=== PATIENT | male | born 1940 | race Caucasian/White ===

== ENCOUNTER 2016-09-07 07:17 | Day surgery (SDC) | payer MEDICARE, OTHER ==
[~2016-09-07 07:17] MED LIST: KETOROLAC TROMETHAMINE 0.45% 4 DROP/0.4 ML DROPERETTE OD PRN; MIDAZOLAM 2 MG/2 ML INJ ONE
[2016-09-07] MEDS ORDERED: EPINEPHRINE INJ/PF 1 MG/1 ML AMPULE ONE (07:43)
[2016-09-07] MEDS ORDERED: LIDOCAINE 1% INJ-PF (10 MG/ML) 30 ML SDV ONE (07:43)
[2016-09-07] MEDS: BESIFLOXACIN HCL 0.6% OPH SUSP 5 ML BOTTLE OD PRN ×4 (07:56→09:03)
[2016-09-07] MEDS: TROPICAMIDE 1% OPH SOLN 3 ML OD PRN ×3 (07:56→08:16)
[2016-09-07] MEDS: CYCLOPENTOLATE 0.2%/PHENYLEPHRINE 1% OPH SOLN 2 ML OD PRN ×3 (07:56→08:16)
[2016-09-07] MEDS: TETRACAINE HCL 0.5% OPH SOLN 2 ML OD PRN ×3 (07:57→08:36)
[2016-09-07] MEDS ORDERED: ONDANSETRON HCL INJ/PF 4 MG/2 ML SDV ONE (08:30)
[2016-09-07] MEDS: CHONDR SU A NA/HYALUR INTRAOC KIT (SURGICARE) ONE ×2 (08:55)
--- NOTE | 2016-09-07 16:39 | [facility] OPERATIVE REPORT E ---
[facility] Operative Report NAME: ANUSHA GUTIERREZ AGE: 75Y DATE OF SURGERY: 09/07/2016 ROOM: PREOPERATIVE DIAGNOSIS: CATARACT, RIGHT EYE. POSTOPERATIVE DIAGNOSIS: CATARACT, RIGHT EYE. OPERATION: Cataract extraction with intraocular lens implant of the right eye. SURGEON: SHEYLA LIM M.D. ANESTHESIA: Topical. PROCEDURE: After obtaining appropriate consent, the patient's right eye was prepped and draped in sterile fashion as well as the surgeon in a sterile manner and cataract surgery was started. First a paracentesis blade was used to make a small side-port incision. Viscoelastic was used to inflate the anterior chamber. Next a 2.4 mm incision was made with the paracentesis blade. A continuous capsulorrhexis incision was made using a cystotome and Utrata forceps. Following this hydrodissection was carried out to make the lens fully loose and mobile and it was rotated 90 degrees. Following this, a koafzi-tyy-tosacds technique was used to phacoemulsify the lens with a CDE of 7.68. The remaining cortex was removed with irrigation/aspiration. Provisc was instilled into the capsular bag to inflate the bag. A SN60WF, 13.5 diopter lens was placed. The remaining viscoelastic material was removed with irrigation/aspiration. Following this, a 10-0 nylon suture was used to close the incision and it was found to be watertight. Vigamox was instilled in the eye and a protective shield was placed over the eye. The patient returned to the postoperative recovery in stable condition. DICTATING PHYSICIAN: SHEYLA LIM M.D. [id number] Y#: [id number] ID: [id number] JOB#: [id number] ACCT: [id number] cc:SHEYLA LIM M.D. >
--- NOTE | 2016-09-07 16:43 | DISCHARGE SUMMARY E ---
Discharge Summary NAME: ANUSHA GUTIERREZ : 1940 AGE: 75Y ADMITTED: 09/07/2016 DISCHARGED: 09/07/2016 This is a 75-year-old male who underwent cataract extraction of the right eye. DIAGNOSIS: Cataract, right eye. He underwent surgery because he was having trouble reading road signs at driving due to glare. DISCHARGE INSTRUCTIONS: He is to be on a regular diet. No bending at his waist, no heavy lifting. He is to use Besivance, Ilevro, and Durezol at 3:00 p.m. and 8:00 p.m., and sleep with a rigid shield. I will see him for his one day postoperative tomorrow. DICTATING PHYSICIAN: SHEYLA LIM M.D. [id number] JAIR#: [id number] ID: [id number] JOB#: [id number] ACCT: [id number] cc:SHEYLA LIM M.D. >
== END 2016-09-07 09:47 | disposition home or self-care (01) ==
LOC: SC 07:17
PROVIDERS: ATTEND Internal Medicine
PROC: 08RJ3JZ Replacement of Right Lens with Synthetic Substitute, Percutaneous Approach (ICD-10-PCS; principal; 2016-09-07 08:30)
DX: H25.11 Age-related nuclear cataract, right eye (principal); I10 Essential (primary) hypertension; E11.9 Type 2 diabetes mellitus without complications; Z79.02 Long term (current) use of antithrombotics/antiplatelets; Z79.84 Long term (current) use of oral hypoglycemic drugs; Z79.82 Long term (current) use of aspirin; Z79.899 Other long term (current) drug therapy
CPT/HCPCS: 66984; 82962; V2632; J2250; J3490 ×2; A9270; J0171; J2405; 142

== ENCOUNTER → 2016-11-15 | Outpatient (CLI) | payer MEDICARE, OTHER | LOC: RAD 15:42 | PROVIDERS: ATTEND Internal Medicine | DX: M54.5 Low back pain (principal); M47.896 Other spondylosis, lumbar region | CPT/HCPCS: 72110 ==

== ENCOUNTER → 2018-02-12 | Outpatient (CLI) | payer MEDICARE, OTHER ==
--- NOTE | 2018-02-12 08:58 | RADIOLOGY REPORT (SQ) ---
EXAM DESCRIPTION: COOKIE SWALLOW COMPLETED DATE/TIME: 02/12/2018 8:50 am REASON FOR STUDY: DYSPHONIA, SLURRED SPEECH, OTHER ABN OF GAIT AND MOBILITY R49.0 DYSPHONIA R47.81 SLURRED SPEECH R26.89 OTHER ABNORMALITIES OF GAIT AND MOBILITY COMPARISON: None. TECHNIQUE: Videofluoroscopic swallowing examination was performed in conjunction with speech patholo gy. Videofluoroscopic imaging was obtained and reviewed and these are the findings: RADIATION DOSE: Fluoro time 2.53 minutes 1 images saved to PACS. LIMITATIONS: None FINDINGS: The patient was brought into the fluoro room and placed upright on a modified barium swall ow chair. The patient was then given multiple consistencies mixed with barium to swallow under live fluoroscopic video guidance. According to the Speech Pathologist there was laryngeal penetration see n with thin barium. No aspiration identified. Significant residuals were seen in the vallecula with the cookie consistency with diminished epiglottic inversion noted. Multiple subsequent swallows wer e required to clear the vallecula. Please refer to the speech pathology report for further details. IMPRESSION: LARYNGEAL PENETRATION WITHOUT ASPIRATION SEEN WITH THIN BARIUM. DIMINISHED EPIGLOTTIC I NVERSION NOTED.PLEASE SEE SPEECH PATHOLOGIST REPORT FOR OTHER FINDINGS AND RECOMMENDATIONS. COMMENT: CHOOSE 1 Quality ID [id number]: Final reports for procedures using fluoroscopy that document radiation exposure anthony delia, or exposure time and number of fluorographic images (if radiation exposure indices are not avail able) TECHNICAL DOCUMENTATION: JOB ID: [id number] [employer]- All Rights Reserved Reading location - IP/workstation name: [email or web address] [id number]
--- NOTE | 2018-02-12 10:51 | ST Modified Barium Swallow ---
Recommendation - Recommendations Recommendations: Recommend continuing to follow with outpatient speech therapy. Advised patient to avoid specific foods which may be more difficulty (very hard foods, items with skins or husks, etc.). Also recommend alternating bites and sips to help clear pharyngeal residue. Medical Diagnoses - Medical Diagnoses Medical Diagnosis Description & ICD-10 Code(s): dysphagia R13.10, slurred speech R47.81 Other Medical Diagnoses/Co-Morbidities: per patient report: DM, Seizures HTN, TIA, Appendectomy, Gall bladder removed, Parkinson's disease ST Modified Barium Swallow - General Date: 02/12/18 Referring Physician: Kassie Vincent NP Risks/Precautions: Aspiration Date of Onset: 12/28/16 - approximate onset date Reason for Referral: difficulty swallowing - History History obtained from: Patient, Spouse -: Medical - History taken at initial outpatient evaluation for speech therapy on 01/10/18. At that session, reports patient having difficulty "getting words out" x1 year. Patient states that these instances happen rarely, and when they happen it feel similar to word finding deficits he had immediately following TIA in 2007. No residual deficits from his TIA reported. Patient was diagnosed with Parkinson's disease in 2014. At times voice "gets low", but the patient and his generally feel that voice isn't changed. No prior speech therapy. Swallowing difficulties also x1 year. No foods being avoided. Globus sensation, no coughing reported. Medications: per patient provided list: Levemir FLextouch, Clopidogrel, Glimepiride, Tribenzor, Metformin, Novotwist, Carbidopa levodpa, Zetia Allergies: none reported - Functional Status Prior Functional Status: INDEPENDENT: feeding - independent Current Functional Limitations: feeding - using liquid wash - Subjective Patient/caregiver goal(s): better swallow Cognitive-Linguistic Function: WNL Speech Intelligibility: Mildly dysarthric Current Nutritional Means: PO Current PO diet: Regular Current symptoms: c/o Globus sensation Pain: Patient reports, 0/5 - Objective Assessment: Upright, Left Lateral - Food Trials Used Food trials used: Thin liquids, Pureed, Regular The patient: Was Able to Self Feed, via cup, via spoon - Assessment Oral prep: Normal Labial closure: Adequate Leakage: None Mastication: Adequate Oral stage: Normal for this Procedure - Pharyngeal Stage Initiation of Pharyngeal Stage Reflex: Normal Decreased laryngeal elevation: No Reduced Velopharyngeal Closure: no Reduced pressure generation: Yes reduced tongue-based retraction: No Pre-swallow pooling in valleculae: Significant Pre-Swallow pooling in pyriforms: None Reduced Thyro-Hyoid approximation: Yes - mild Reduced epiglottic excursion: Yes - epiglottis moves horizontally across pharynx but does not invert Reduced pharyngeal peristalsis/contraction: Yes - mild Multiple Swallows with: Ineffective Clearance Post-swallow residulas vallecular: Significant Post-Swallow residuals in pyriforms: Mild Reduced Cricopharyngeal opening: No - Fall Risk Assessment Medications/Conditions that increase fall risks include: Antidepressants, sedatives, anti-arrhythmic, diuretic, benzodiazipenes, neuroleptics. BP regulation problems, cardiac problems, balance or gait deficits, neurological problems. Fall Risk Actions Taken: No action needed - Behavioral Observations During evaluation process patient: was pleasant, was cooperative, able to answer questions - Treatment / Educational Needs: Treatment/Education Needs: Treatment consisted of patient education on the role of the Speech Pathologist. Patient's plan of care and golas were communicated as well as scheduling and attendance policies. Recommendations for initial home program were shared. Patient demonstrated understanding and verbalized agreement. - Impression/Summary Laryngeal Penetration: Yes, Flash, Cleared, during swallow Consistency: Thin Tracheal Aspiration: no Ineffective compensatory strategies: chin tuck, chin down Compesatory strategies: Recommend alternating bites and sips, every 1-2 bites of food. Hard swallow. Throat clear and re-swallow. Patient presents with: Pharyngeal stage dysph., Mild-Moderate Risk of Aspiration: Mild Risk of nutritional compromise: WNL Evaluation and Findings: Patient presents with moderate pharyngeal phase dysphagia. The patient has reduced epiglottic inversion, which reduces airway protection. Penetration of thin liquids seen, not reaching level of vocal folds. Reduced epiglottic inversion also caused increased residue in valleculae. Moderate seen with pudding trial, significant seen with elly cracker trial. Patient demonstrates adequate sensation of residue, and knows to drink liquid until he feels this clear. 4-5 sips of liquid and hard swallows required to clear elly cracker trial. - Recommendations Solid diet recommendations: Regular - avoiding specific problematic foods Liquid Diet Modification: Thin Strict aspiration precautions: Yes Pt/Family education and followup with MD: Yes Dysphagia therapy with LONG LINE TEAMSTER: yes, dysphagia therapy, f/u with current thera. Recommended techniques: Fully Upright During Meal, Small Bites and Sips, Alternate Bites/Sips Information, Precautions and Recommendations: Patient (Written), Patient (Verbal ) - Time Total Time: 20 - Plan of Care Summary: Goals to be set for outpatient speech and dysphagia treatment. Patient to follow-up with referring physician: Yes POC Procedures/Codes: therapeutic trials, pharyngeal exercises, MBSS (60611) Strategies to optimize patient understanding include:: ongoing assessment of educational needs, implementation of educational strategies, and re-education. - - -: Thank you for the opportunity to work with this patient and his/her family. Should you have any questions about this patient's plan or progress, I can be reached at [phone]. Charge G Code? - - -: Yes ST F.L. Impairment Category - Rationale Based On Rationale Based On: Func. Asses. Tool Results - Swallowing Current G8996: CK 40-59% Impaired Goal G8997: CK 40-59% Impaired Discharge G8998: CK 40-59% Impaired
== END ==
LOC: RAD 08:05
PROVIDERS: ATTEND Nurse Practitioner Family
DX: R49.0 Dysphonia (principal); R47.81 Slurred speech; R26.89 Other abnormalities of gait and mobility
CPT/HCPCS: 74230; 92611; G8996; G8997; G8998

== ENCOUNTER 2018-12-04 06:53 | Day surgery (SDC) | payer MEDICARE, OTHER ==
[2018-11-27 11:31] LABS: HEMOGLOBIN 11.3 g/dL (13.5-17.0); MEAN CORPUSCULAR HEMOGLOBIN 30.8 pg (27.0-33.4); MEAN CORPUSCULAR HGB CONC 33.3 g/dL (32.0-36.0); MEAN CORPUSCULAR VOLUME 92 fl (80-97); PLATELET COUNT 236 10^3/uL (150-450); RED BLOOD COUNT 3.69 10^6/uL (4.35-5.55); RED CELL DISTRIBUTION WIDTH 12.7 % (11.5-14.0); WHITE BLOOD COUNT 9.8 10^3/uL (4.0-10.5)
[2018-11-27 11:50] LABS: ANION GAP 15 (5-19); BLOOD UREA NITROGEN 43 mg/dL (7-20); CALCIUM 10.5 mg/dL (8.4-10.2); CARBON DIOXIDE 28 mmol/L (22-30); CHLORIDE 99 mmol/L (98-107); GLUCOSE 133 mg/dL (75-110); POTASSIUM 5.1 mmol/L (3.6-5.0); SODIUM 141.7 mmol/L (137-145)
--- NOTE | 2018-11-27 23:13 | EKG REPORT ---
SEVERITY:- NORMAL ECG - SINUS RHYTHM : Confirmed by: Missy Bhardwaj 27-Nov-2018 23:12:25
[~2018-12-04 06:53] MED LIST changes: +ACETAMINOPHEN 325 MG TABLET PO PRN; +CEFAZOLIN 1 GM/D5W RTU 1 GM/50 ML RTUPB IV PRN; -KETOROLAC TROMETHAMINE 0.45% 4 DROP/0.4 ML DROPERETTE OD PRN; +LACTATED RINGERS 1000 ML IV PRN; +LIDOCAINE 0.5% INJ-PF (5 MG/ML) 50 ML SDV SUBCUT PRN; -MIDAZOLAM 2 MG/2 ML INJ ONE
[2018-12-04] MEDS ORDERED: CEFAZOLIN 1 GM/D5W RTU 1 GM/50 ML RTUPB IV ONE (07:01)
[2018-12-04 07:27] LABS: INTERNATIONAL RATION (INR) 0.94; PROTHROMBIN TIME 13.1 SEC (11.4-15.4)
[2018-12-04 07:28] LABS: PARTIAL THROMBOPLASTIN TIME 25.8 SEC (23.5-35.8)
[2018-12-04] MEDS ORDERED: FENTANYL CITRATE INJ/PF 100 MCG/2 ML AMPUL ONE (09:19)
[2018-12-04] MEDS ORDERED: MIDAZOLAM 2 MG/2 ML INJ ONE (09:19)
[2018-12-04] MEDS ORDERED: HYDROMORPHONE HCL INJ/PF 2 MG/ML AMPULE ONE (09:19)
[2018-12-04] MEDS ORDERED: PROPOFOL INJ 200 MG/20 ML VIAL IV ONE (09:20)
[2018-12-04] MEDS ORDERED: ACETAMINOPHEN 1,000 MG/100 ML RTUPB IV ONE (09:20)
[2018-12-04] MEDS ORDERED: BUPIVACAINE HCL 0.25 % INJ/PF (2.5 MG/1 ML) 30 ML VIAL ONE (09:24)
[2018-12-04] MEDS ORDERED: BUPIVACAINE INJ/PF LIPOSOME/PF 266 MG/20 ML SDV ONE (09:24)
[2018-12-04] MEDS ORDERED: PROMETHAZINE HCL INJ 25 MG/1 ML VIAL ONE (09:34)
[2018-12-04] MEDS ORDERED: SCOPOLAMINE HYDROBROMIDE 1.5 MG PATCH.TD72 ONE (09:35)
[2018-12-04] MEDS ORDERED: FENTANYL CITRATE INJ/PF 100 MCG/2 ML AMPUL IV PRN ×3 (10:20)
[2018-12-04] MEDS ORDERED: MORPHINE SULFATE 10 MG/ML INJ IV PRN (10:20)
[2018-12-04] MEDS ORDERED: MEPERIDINE HCL/PF INJ 25 MG/1 ML DISP.SYRIN IV PRN (10:20)
[2018-12-04] MEDS ORDERED: DIPHENHYDRAMINE HCL 50 MG/ML VIAL IV PRN (10:20)
[2018-12-04] MEDS ORDERED: OXYCODONE-ACETAMINOPHEN 5-325 MG TABLET PO PRN (10:54)
--- NOTE | 2018-12-04 10:54 | Discharge Summary ---
Discharge Summary (SDC) - Discharge Final Diagnosis: Left inguinal hernia Date of Surgery: 12/04/18 Discharge Date: 12/04/18 Condition: Good Treatment or Instructions: [facility] [address], [place] [address] Discharge Instructions: Open Abdominal Procedures (Hernia, Bowel Surgery) 1.General Information: a. DO NOT DRIVE a car or operative machinery for 1-2 weeks or as long as taking Narcotic pain medication. b. DO NOT consume alcohol, tranquilizers, sleeping medication, or any non- prescribed medication for 24 hours unless approved by your doctor or as long as taking pain medication. c. DO NOT make important decisions or sign any important papers for the first 24 hours after surgery. d. When discharged home the same day as surgery have a responsible person with you the first night. 2.Activity Restriction: 8 weeks a. Avoid heavy lifting (> 10-15 lbs), straining abdominal muscles and sports, mowing lawn, vacuum shafting cleaner and bending over a lot. b. Walking is important to avoid blood clots in the legs and deep breathing can prevent pneumonia. c. If it fine to go for walks, up and down steps, and ride in a car. 3.Treatment: a. You may shower in 24 hours after surgery and shower then daily is fine, but you should not bathe in a tub or go swimming for 2 weeks. Leave skin glue intact. c. Do not use oils, powders, or lotion on your incision. 4.Medications: a. You may take prescription tablets for pain if needed, one every 6 hours (_Toradol_). c. You may resume all normal medications unless a change is specified by your doctors. 5.Diet: b. When discharged after hospital stay you may resume a normal diet. 6.Notify Physician If: a. Pain is not relieved by pain medication b. Persistent nausea and vomiting c. Chills, fever (above 101) d. Persistent bleeding or swelling at the operative site e. Unable to urinate for 6-8 hours f. Increased redness, drainage, or foul smelling discharge from incision 7. Follow Up Care: a. Please call our office to schedule an appointment with your doctor for 2 weeks. In the event of any postoperative problems or questions you may call our office during business hours or the On-Call surgeon through the tufting machine operator at [facility]. [facility] [phone] [facility] [phone] (Ask for the surgeon subcontract manager) b. I understand the instructions for my postoperative care as described above and a copy has been given to me. Witness Patient/Significant Other Date Prescriptions: Ketorolac Tromethamine [Toradol 10 mg Tablet] 10 mg PO Q6HP PRN #20 tablet PRN Reason: Referrals: DESTINEY HAMMONDS MD [Primary Care Provider] - Discharge Diet: As Tolerated Discharge Activity: Balance Activity w/Rest, No Lifting Over 10 Pounds, No Lifting/Push/Pulling, Walk Frequently Report the Following to Your Physician Immediately: Nausea, Vomiting, Increase in Pain, Fever over 101 Degrees, Unusual Bleeding, Redness, Warmth
--- NOTE | 2018-12-04 11:01 | Operative Report ---
Operative Report DATE OF SURGERY: 12/04/18 PREOPERATIVE DIAGNOSIS: Left inguinal hernia, incarcerated POSTOPERATIVE DIAGNOSIS: Same, indirect OPERATION: Left inguinal expiration, with left inguinal herniorrhaphy with large Bard polypropylene mesh prosthesis SURGEON: GABRIELA LAU ANESTHESIA: GA TISSUE REMOVED OR ALTERED: Hernia sac; cord lipoma COMPLICATIONS: None ESTIMATED BLOOD LOSS: Scant INTRAOPERATIVE FINDINGS: See below PROCEDURE: The patient was seen in the preop holding area where the left inguinal area was marked by Dr. Lau. He was then taken to the main operating room where general anesthesia was induced. The scrotum, inguinal areas were scrubbed vigorously with chlorhexidine wipes. Additional hair clipping was performed The left inguinal area was then prepped draped sterile fashion. Surgical plan and surgical timeout were conducted. The skin was anesthetized with quarter percent Marcaine. Left inguinal herniorrhaphy incision was made knife, subcutaneous tissue divided, and Radha's fascia divided Additional lidocaine was injected into the deep tissue. The external oblique aponeurosis was opened along the direction of its fibers, and both the. Superior and inferior fascial flaps were and the contents of the entire inguinal canal mobilized around a [place] drain. Cremasteric fibers were swept away, and the floor the inguinal canal analyzed. The floor medially was intact but weak. Cord contents analyzed, and we identified a moderate sized cord lipoma, and a large inguinal hernia sac. Both structures were isolated from the other cord structures uneventfully with gentle tension. The lipoma was mobilized to its point of origination close to the internal inguinal ring, ligated at its base, amputated and the pedicle oversewn with a 2-0 Vicryl suture. The hernia sac was opened and found to contain a portion of the posterior inferior wall of the sigmoid colon and this was from the carefully. That portion of the colon was allowed to retract into the peritoneal cavity, and the sac oversewn at the level of the anterior abdominal wall with a 2-0 Vicryl suture in a pursestring fashion. The distal portion of the sac was amputated and sent to pathology. We now check to the floor the inguinal canal carefully and identified no other pathology. Spermatic cord was preserved throughout the dissection. We elected to reconstruct the floor of the canal with a large probe going Bard plug and mesh prosthesis. The plug was brought onto the field, inserted into the floor the canal just medial to the cord structures, and lateral to the inferior epigastric vessels. It was sewed to the floor the inguinal canal with 3 interrupted 0 PDS sutures. The over lying flat mesh was then turned to the appropriate configuration, so to joint tendon and Poupart's ligament, with the 2 tails re-creating the internal inguinal ring laterally. Approximately 8 sutures were used to fix the mesh to the fascia. The respective sensory nerves were avoided during fixation. The external oblique aponeurosis was closed with 2-0 Vicryl, Radha's fascia with 2-0 Vicryl skin with 3-0 Vicryl Dermabond glue. 20 cc of slightly dilute Exparel was injected in subcutaneous tissues. Patient tolerated the procedure well, extubated, and taken recovery in stable condition.
[2018-12-04] MEDS ORDERED: ONDANSETRON HCL INJ/PF 4 MG/2 ML SDV ONE (13:45)
[2018-12-04] MEDS ORDERED: DEXAMETHASONE SOD PHOSPHATE INJ 4 MG/1 ML VIAL ONE (13:45)
[2018-12-04] MEDS ORDERED: PHENYLEPHRINE HCL INJ/PF 10 MG/1 ML SDV ONE (13:45)
[2018-12-04] MEDS ORDERED: SUCCINYLCHOLINE CHLORIDE INJ 200 MG/10 ML VIAL ONE (13:45)
[2018-12-04 14:00] VITALS: BP 139/67
== END 2018-12-04 13:15 | disposition home or self-care (01) ==
LOC: OROUT 06:53
PROVIDERS: ATTEND Surgery
DX: K40.30 Unilateral inguinal hernia, with obstruction, without gangrene, not specified as recurrent (principal); D17.6 Benign lipomatous neoplasm of spermatic cord; E11.9 Type 2 diabetes mellitus without complications; G20 Parkinson's disease; I10 Essential (primary) hypertension; D64.9 Anemia, unspecified; Z79.899 Other long term (current) drug therapy; Z79.84 Long term (current) use of oral hypoglycemic drugs; Z86.73 Personal history of transient ischemic attack (TIA), and cerebral infarction without residual deficits; Z79.82 Long term (current) use of aspirin; Z01.818 Encounter for other preprocedural examination
CPT/HCPCS: 93005; 36415 ×2; 82962; 84132; 85027; 85610; 85730; 80048; 88304 ×2; 93010; 49507; C1781; J2250; J0690; J1100; J1170; J2370; J0330; J2405; J2704; J0131; C9290; 830; J2550; J3010

== ENCOUNTER 2019-12-26 00:35 | Emergency (ER) | payer MEDICARE, OTHER ==
--- NOTE | 2019-12-26 02:47 | RADIOLOGY REPORT (SQ) ---
EXAM DESCRIPTION: X-ray abdomen 1 view CLINICAL DATA: 79-year-old male with abdominal pain and constipation. TECHNICAL DATA: A single AP supine x-ray of the abdomen was performed on 12/26/2019 at 2:24 AM. Comparison: 04/23/2013. FINDINGS: The bowel gas pattern is nonspecific and nonobstructive. There is moderate fecal residue scattered throughout the colon and rectum. There are multiple surgical clips present in the right upper quadrant. No pathologic abdominal or pelvic calcifications are identified. No abnormal air collections are identified. No focal soft tissue abnormalities are seen. No acute osseous abnormalities are identified. IMPRESSION: 1. Nonspecific nonobstructive bowel gas pattern. There is moderate fecal residue scattered throughout the colon and rectum. 2. Postsurgical changes in the right upper quadrant.
[2019-12-26 08:41] LABS: APPEARANCE,URINE CLEAR; BILIRUBIN,URINE NEGATIVE (NEGATIVE); COLOR,URINE YELLOW; GLUCOSE, URINE 50 mg/dL (NEGATIVE); KETONES,URINE TRACE mg/dL (NEGATIVE); LEUKOCYTE ESTERASE,URINE NEGATIVE (NEGATIVE); NITRITE,URINE NEGATIVE (NEGATIVE); PROTEIN,URINE NEGATIVE (NEGATIVE); URINE SPECIFIC GRAVITY 1.013; UROBILINOGEN,URINE NEGATIVE mg/dL (<2.0)
[2019-12-26 09:19] LABS: ABSOLUTE BASOPHILS # (AUTO) 0.1 10^3/uL (0.0-0.2); ABSOLUTE EOSINOPHILS # (AUTO) 0.2 10^3/uL (0.0-0.6); ABSOLUTE MONOCYTES (AUTO) 0.9 10^3/uL (0.1-1.4); BASOPHILS % (AUTO) 0.5 % (0-2); EOSINOPHILS % (AUTO) 1.7 % (0-6); HEMATOCRIT 30.5 % (37.9-51.0); HEMOGLOBIN 10.2 g/dL (13.5-17.0); LYMPHOCYTES % (AUTO) 18.1 % (13-45); MEAN CORPUSCULAR HEMOGLOBIN 31.3 pg (27.0-33.4); MEAN CORPUSCULAR HGB CONC 33.5 g/dL (32.0-36.0); MEAN CORPUSCULAR VOLUME 94 fl (80-97); MONOCYTES % (AUTO) 8.3 % (3-13); PLATELET COUNT 259 10^3/uL (150-450); RED BLOOD COUNT 3.27 10^6/uL (4.35-5.55); RED CELL DISTRIBUTION WIDTH 12.9 % (11.5-14.0); SEGMENTED NEUTROPHILS % (AUTO) 71.4 % (42-78); TOTAL CELLS COUNTED % (AUTO) 100 %; WHITE BLOOD COUNT 11.1 10^3/uL (4.0-10.5)
[2019-12-26 09:38] LABS: ALBUMIN 3.9 g/dL (3.5-5.0); ALKALINE PHOSPHATASE 59 U/L (38-126); ANION GAP 9 (5-19); ASPARTATE AMINO TRANSFERASE 31 U/L (17-59); BILIRUBIN,TOTAL 0.4 mg/dL (0.2-1.3); BLOOD UREA NITROGEN 68 mg/dL (7-20); CALCIUM 9.1 mg/dL (8.4-10.2); CARBON DIOXIDE 24 mmol/L (22-30); CHLORIDE 99 mmol/L (98-107); GLUCOSE 164 mg/dL (75-110); POTASSIUM 4.3 mmol/L (3.6-5.0); TOTAL PROTEIN 6.6 g/dL (6.3-8.2)
[2019-12-26 10:10] VITALS: BP 123/58
--- NOTE | 2019-12-26 10:24 | ER Document Report ---
ED General - General Chief Complaint: Trouble Voiding Stated Complaint: DIFFICULTY URINATING Time Seen by Provider: 12/26/19 07:58 Primary Care Provider: DESTINEY HAMMONDS MD [Primary Care Provider] - Follow up as needed TRAVEL OUTSIDE OF THE [place] IN LAST 30 DAYS: No - HPI Notes: Chief complaint: Unable to void History of present illness: 79-year-old male 3 weeks status post right inguinal hernia repair by Dr. Parr. Now presents with difficulty voiding past 2 to 3 days. He is not been able to void at all within the last 12 hours. He has mild abdominal discomfort suprapubic area. He denies prior voiding problems. He denies dysuria. No fever or chills. No back pain. No new [id number]-[id number] medications. - Related Data Allergies/Adverse Reactions: No Known Allergies Allergy (Verified 11/27/18 09:48) Home Medications: pt has pill bottles with him Past Medical History - General Information source: Patient, [facility], [facility] Records - Social History Smoking Status: Never Smoker Family History: Reviewed & Not Pertinent Patient has homicidal ideation: No - Past Medical History Cardiac Medical History: Reports: Hx Hypercholesterolemia, Hx Hypertension Denies: Hx Coronary Artery Disease, Hx Heart Attack Pulmonary Medical History: Denies: Hx Asthma, Hx Bronchitis, Hx COPD, Hx Pneumonia Neurological Medical History: Denies: Hx Cerebrovascular Accident, Hx Seizures Endocrine Medical History: Reports: Hx Diabetes Mellitus Type 1, Hx Diabetes Mellitus Type 2 - Oral hypoglycemics and insulin. Diabetic peripheral neuropathy. GI Medical History: Reports: Hx Gastroesophageal Reflux Disease. Denies: Hx Hepatitis, Hx Hiatal Hernia, Hx Ulcer Musculoskeletal Medical History: Denies Hx Arthritis Psychiatric Medical History: Denies: Hx Depression Infectious Medical History: Denies: Hx Hepatitis Past Surgical History: Reports: Hx Appendectomy, Hx Cholecystectomy. Denies: Hx Bowel Surgery, Hx Coronary Artery Bypass Graft, Hx Gastric Bypass Surgery, Hx Herniorrhaphy, Hx Open Heart Surgery, Hx Pacemaker, Hx Tonsillectomy - Immunizations Immunizations up to date: Yes Hx Diphtheria, Pertussis, Tetanus Vaccination: No Hx Pneumococcal Vaccination: 09/20/12 Review of Systems - Review of Systems Notes: Constitutional: Negative for fever. HENT: Negative for sore throat. Eyes: Negative for visual changes. Cardiovascular: Negative for chest pain. Respiratory: Negative for shortness of breath. Gastrointestinal: As per HPI. Genitourinary: As per HPI. Musculoskeletal: Negative for back pain. Skin: Negative for rash. Neurological: Negative for headaches, weakness or numbness. 10 point ROS negative except as marked above and in HPI. Physical Exam - Vital signs Vitals: Temp Pulse Resp BP Pulse Ox 98.5 F 81 16 139/62 H 97 12/26/19 00:42 12/26/19 00:42 12/26/19 00:42 12/26/19 00:42 12/26/19 00:42 - Notes Notes: GENERAL: Elderly man appearing moderately uncomfortable holding hands over suprapubic area. SKIN: Good turgor no rashes. HEAD: Normocephalic atraumatic. EYES: PERRLA. EOMI. Conjunctivae and sclerae clear. EARS: CANALS AND TMS CLEAR. NOSE: CLEAR. MOUTH: Moist mucosa. Good dentition. No stridor or edema. No drooling. NECK: Supple. No masses or thyromegaly. No adenopathy. Carotids 2+ without bruits. No JVD. BACK: Symmetrical without tenderness. CHEST: Respirations unlabored. Breath sounds clear and symmetrical. HEART: Regular rhythm. No murmur gallop or rub. ABDOMEN: Bladder is palpably distended. Mild suprapubic tenderness without masses, organomegaly or rebound. Bowel sounds normally active. No bruits. GENITALIA: Deferred. EXTREMITIES: No edema. No calf tenderness. Cap refill less than 1.5 seconds. Dorsalis pedis and posterior tibial pulses 3+ and symmetrical. NEUROLOGICAL: GCS 15. Alert and oriented x3. Normal gait. Fluent speech. Cranial nerves II through XII intact. Sensorimotor and cerebellar normal. Normal tone. PSYCHIATRIC: Appropriate affect. Course - Re-evaluation Re-evalutation: 12/26/19 10:22 Nice catheter was placed with drainage of about 1800 cc of clear urine. Pat ient symptomatically improved with this. Patient's labs are otherwise unremarkable. We are going to give him a leg bag and send him home on 7 days of oral Cipro and oral Flomax. He will be referred to urology for follow-up. - Vital Signs Vital signs: Temp Pulse Resp BP Pulse Ox 97.9 F 84 16 123/58 L 98 12/26/19 10:05 12/26/19 10:05 12/26/19 10:05 12/26/19 10:05 12/26/19 10:05 - Laboratory Result Diagrams: 12/26/19 09:04 12/26/19 09:04 Laboratory results interpreted by me: 12/26/19 12/26/19 12/26/19 08:24 09:04 09:04 WBC 11.1 H RBC 3.27 L Hgb 10.2 L Hct 30.5 L Sodium 132.4 L BUN 68 H Creatinine 1.72 H Est GFR ( Amer) 46 L Est GFR (MDRD) Non-Af 38 L Glucose 164 H Urine Glucose (UA) 50 H Urine Ketones TRACE H Discharge - Discharge Clinical Impression: Acute urinary retention Condition: Stable Disposition: HOME, SELF-CARE Additional Instructions: Urinary Retention Urinary retention is inability to empty the bladder. It can result from a urine infection, or from mechanical problems such as an enlarged prostate gland or swelling of the urethra. Drugs or alcohol can also lead to urine retention. The condition is usually treated by passage of a catheter. If the physician thinks the problem will continue, the catheter may be left in place for a few days. Sometimes drugs are used to stimulate the bladder if the physician feels that inadequate bladder contraction is the cause. If the condition leading to the retention is a chronic one, such as an enlarged prostate, you will be referred to a specialist for further care. Call the physician or return if you develop fever, flank or back pain, pain on urination, or recurrent difficulty passing the urine. Take prescribed medications as instructed. Return here as needed for new or worsening symptoms. Follow-up with referral urologist. Return here as needed for new or worsening symptoms: Pain that is worsening or unimproved Uncontrolled vomiting High fever or shaking chills Overall worsening Prescriptions: Ciprofloxacin HCl [Cipro 500 mg Tablet] 500 mg PO DAILY 7 Days #7 tablet Tamsulosin HCl [Flomax 0.4 mg Cap.sr] 0.4 mg PO DAILY #7 cap.sr.24h Referrals: DESTINEY HAMMONDS MD [Primary Care Provider] - Follow up as needed
== END 2019-12-26 10:57 | disposition home or self-care (01) ==
LOC: ER 00:35
DX: R33.8 Other retention of urine (principal); E78.00 Pure hypercholesterolemia, unspecified; I10 Essential (primary) hypertension; Z79.84 Long term (current) use of oral hypoglycemic drugs; Z79.4 Long term (current) use of insulin; Z90.49 Acquired absence of other specified parts of digestive tract
CPT/HCPCS: 36415; 51702; 74018; 80053; 81001; 85025; 99284

== ENCOUNTER 2020-05-05 02:27 | Emergency (ER) | payer MEDICARE, OTHER ==
[2020-05-05 03:13] LABS: ABSOLUTE EOSINOPHILS # (AUTO) 0.1 10^3/uL (0.0-0.6); ABSOLUTE LYMPHOCYTES (AUTO) 0.9 10^3/uL (0.5-4.7); ABSOLUTE MONOCYTES (AUTO) 0.7 10^3/uL (0.1-1.4); ABSOLUTE NEUT (AUTO) 10.2 10^3/uL (1.7-8.2); BASOPHILS % (AUTO) 0.4 % (0-2); EOSINOPHILS % (AUTO) 0.8 % (0-6); HEMATOCRIT 28.8 % (37.9-51.0); HEMOGLOBIN 9.6 g/dL (13.5-17.0); LYMPHOCYTES % (AUTO) 7.8 % (13-45); MEAN CORPUSCULAR HEMOGLOBIN 30.4 pg (27.0-33.4); MEAN CORPUSCULAR HGB CONC 33.4 g/dL (32.0-36.0); MEAN CORPUSCULAR VOLUME 91 fl (80-97); MONOCYTES % (AUTO) 5.5 % (3-13); PLATELET COUNT 268 10^3/uL (150-450); RED BLOOD COUNT 3.16 10^6/uL (4.35-5.55); RED CELL DISTRIBUTION WIDTH 14.1 % (11.5-14.0); SEGMENTED NEUTROPHILS % (AUTO) 85.5 % (42-78); TOTAL CELLS COUNTED % (AUTO) 100 %
[2020-05-05 03:20] LABS: PROTHROMBIN TIME 13.4 SEC (11.4-15.4)
[2020-05-05 03:24] LABS: ALKALINE PHOSPHATASE 56 U/L (38-126); ANION GAP 5 (5-19); ASPARTATE AMINO TRANSFERASE 28 U/L (17-59); BILIRUBIN,DIRECT 0.3 mg/dL (0.0-0.4); BILIRUBIN,TOTAL 0.5 mg/dL (0.2-1.3); BLOOD UREA NITROGEN 38 mg/dL (7-20); CALCIUM 9.7 mg/dL (8.4-10.2); CARBON DIOXIDE 27 mmol/L (22-30); CHLORIDE 102 mmol/L (98-107); CREATINE KINASE 88 U/L (55-170); GLUCOSE 182 mg/dL (75-110); POTASSIUM 4.7 mmol/L (3.6-5.0); TOTAL PROTEIN 6.8 g/dL (6.3-8.2)
[2020-05-05 03:36] LABS: CREATINE KINASE MB 2.89 ng/mL (<4.55)
--- NOTE | 2020-05-05 03:43 | RADIOLOGY REPORT (SQ) ---
COMPLETED DATE/TME: 05/05/2020 02:29 EXAM: Single view chest. INDICATION: Chest pain. COMPARISON: Chest x-ray: 02/21/2015. FINDINGS: Cardiac silhouette: Unremarkable. Halina: Unremarkable. Lobar consolidation: None. Pleural effusion: None. Pneumothorax: None. Other: Stable elevation of the right hemidiaphragm. Calcified granuloma along the left apex. Bones: Unremarkable. Other: None. IMPRESSION: 1. No acute cardiopulmonary process.
[2020-05-05 03:45] LABS: TROPONIN I 0.202 ng/mL
[2020-05-05] MEDS ORDERED: NITROGLYCERIN 2% OINTMENT 1 GM PACKET TP ONE (03:46)
[2020-05-05] MEDS ORDERED: ASPIRIN 81 MG TABLET, CHEWABLE PO ONE (04:24)
--- NOTE | 2020-05-05 05:18 | ER Document Report ---
ED Cardiac - General Chief Complaint: Chest Pain Stated Complaint: CHEST PAIN Time Seen by Provider: 05/05/20 04:21 Primary Care Provider: DESTINEY HAMMONDS MD [Primary Care Provider] - Follow up as needed TRAVEL OUTSIDE OF THE [place] IN LAST 30 DAYS: No - HPI Notes: 79-year-old male presents with chest pain. Patient states that he woke up this morning with chest pain, states "it scared the hell out of me". He described as a dull sensation, like he has been hit with a stick. Pain did not travel anywhere. He currently denies any pain right now. He is unsure if he has any heart history. No shortness of breath. Per EMS run sheet, patient had onset of chest pain head 0115, described as sudden onset of a dull midsternal pain that was non-radiating. Their rhythm strips had ST segment depression. He received 324 mg aspirin and nitroglycerin. - Related Data Allergies/Adverse Reactions: No Known Allergies Allergy (Verified 02/26/20 22:34) Past Medical History - General Information source: Patient - Social History Smoking Status: Former Smoker Frequency of alcohol use: None Drug Abuse: None Family History: Reviewed & Not Pertinent Patient has homicidal ideation: No - Past Medical History Cardiac Medical History: Reports: Hx Hypercholesterolemia, Hx Hypertension Denies: Hx Coronary Artery Disease, Hx Heart Attack Pulmonary Medical History: Denies: Hx Asthma, Hx Bronchitis, Hx COPD, Hx Pneumonia Neurological Medical History: Reports: Hx Parkinson's Disease. Denies: Hx Cerebrovascular Accident, Hx Seizures Endocrine Medical History: Reports: Hx Diabetes Mellitus Type 1, Hx Diabetes Mellitus Type 2 - Oral hypoglycemics and insulin. Diabetic peripheral neuropathy. GI Medical History: Reports: Hx Gastroesophageal Reflux Disease. Denies: Hx Hepatitis, Hx Hiatal Hernia, Hx Ulcer Musculoskeletal Medical History: Denies Hx Arthritis Psychiatric Medical History: Denies: Hx Depression Infectious Medical History: Denies: Hx Hepatitis Past Surgical History: Reports: Hx Appendectomy, Hx Cholecystectomy. Denies: Hx Bowel Surgery, Hx Coronary Artery Bypass Graft, Hx Gastric Bypass Surgery, Hx Herniorrhaphy, Hx Open Heart Surgery, Hx Pacemaker, Hx Tonsillectomy - Immunizations Immunizations up to date: Yes Hx Diphtheria, Pertussis, Tetanus Vaccination: No Hx Pneumococcal Vaccination: 09/20/12 Review of Systems - Review of Systems Constitutional: No symptoms reported EENT: No symptoms reported Cardiovascular: Chest pain Respiratory: denies: Short of breath Gastrointestinal: No symptoms reported Genitourinary: No symptoms reported Male Genitourinary: No symptoms reported Musculoskeletal: No symptoms reported Skin: No symptoms reported Hematologic/Lymphatic: No symptoms reported Neurological/Psychological: Dementia Physical Exam - Vital signs Vitals: Temp Pulse Resp BP Pulse Ox 99.5 F 105 H 21 H 150/74 H 98 05/05/20 02:27 05/05/20 02:27 05/05/20 02:27 05/05/20 02:27 05/05/20 02:27 - General General appearance: Appears well, Alert In distress: None - HEENT Head: Normocephalic, Atraumatic Extraocular movements intact: Yes Pupils: PERRL - Respiratory Breath sounds: Normal - Cardiovascular Rhythm: Regular Heart sounds: Normal auscultation Pulses: Normal: Dorsalis pedis - Abdominal Tenderness: Nontender - Extremities General lower extremity: No: Edema - Neurological Neuro grossly intact: Yes - Psychological Associated symptoms: Normal affect - Skin Skin Temperature: Warm Course - Re-evaluation Re-evalutation: 79-year-old male history of Parkinson's dementia here with chest pain that resolved after treatment with EMS. He is well-appearing on exam, vital signs stable, heart RRR, lungs clear. Given his age and risk factors, concern for cardiac etiology of his pain. His EKG does have some ST segment depression. He was started on a nitro patch. Med list includes aspirin/Plavix. Before starting anticoagulation, will obtain CT head to assure that no bleed is present as he does have some dementia. 05/05/20 05:51 Minimal leukocytosis. Chronic anemia. Electrolytes okay. Creatinine within normal limits. Troponin is elevated at 0.202, intend to start heparin, however awaiting head CT to assure that no bleeding is present 05/05/20 06:00 Patient care to be turned over to Dr. Godoy. Pending head CT, repeat EKG, repeat troponin. Will need heparin started pending negative head CT. Will need admission. - Vital Signs Vital signs: Temp Pulse Resp BP Pulse Ox 98.4 F 108 H 22 H 140/68 H 97 05/05/20 03:00 05/05/20 03:00 05/05/20 03:00 05/05/20 03:00 05/05/20 03:16 - Laboratory Result Diagrams: 05/05/20 03:02 05/05/20 03:02 Laboratory results interpreted by me: 05/05/20 05/05/20 03:02 03:02 WBC 12.0 H RBC 3.16 L Hgb 9.6 L Hct 28.8 L RDW 14.1 H Lymph % (Auto) 7.8 L Absolute Neuts (auto) 10.2 H Seg Neutrophils % 85.5 H Sodium 134.1 L BUN 38 H Glucose 182 H - Diagnostic Test Radiology reviewed: Image reviewed, Reports reviewed - EKG Interpretation by Me Additional EKG results interpreted by me: EKG is interpreted by me. Sinus tachycardia, rate 107. Narrow QRS, QTC within normal limits. ST segment depression anterior leads. EKG changed from previous Discharge - Discharge Clinical Impression: NSTEMI (non-ST elevated myocardial infarction) Disposition: ADMITTED INPATIENT Referrals: DESTINEY HAMMONDS MD [Primary Care Provider] - Follow up as needed
--- NOTE | 2020-05-05 07:03 | RADIOLOGY REPORT (SQ) ---
EXAM: CT Head Without Intravenous Contrast EXAM DATE/TIME: 05/05/2020 04:39 CLINICAL HISTORY: The patient is 79 years old and is Male; eval bleed TECHNIQUE: Axial computed tomography images of the head/brain without intravenous contrast. Sagittal and coronal reformatted images were created and reviewed. This CT exam was performed using one or more of the following dose reduction techniques: automated exposure control, adjustment of the mA and/or kV according to patient size, and/or use of iterative reconstruction technique. COMPARISON: CT brain from 02/21/2015 FINDINGS: BRAIN: Diffuse cerebral atrophy. Ryder-white matter differentiation is well-maintained. No obvious signs of acute infarct. No intracranial hemorrhage. VENTRICLES: No hydrocephalus. BONES/JOINTS: Unremarkable. No acute fracture. SOFT TISSUES: Unremarkable. SINUSES: Unremarkable as visualized. No acute sinusitis. MASTOID AIR CELLS: Unremarkable as visualized. No mastoid effusion. IMPRESSION: 1. No acute intracranial findings visualized. 2. Diffuse cerebral atrophy.
[2020-05-05] MEDS ORDERED: HEPARIN SOD (PORCINE) 1,000 UNIT/ML 10 ML VIAL IV ONE (07:08)
[2020-05-05] MEDS ORDERED: HEPARIN SODIUM,PORCINE/D5W 25,000 UNIT/250 ML RTUINJ IV PRN (07:08)
--- NOTE | 2020-05-05 08:30 | PDOC CONSULTATION ---
Consultation Consult Date: 05/05/20 Attending physician:: MADDY LORA Provider Consulted: GAEL SHELTON Consult reason:: NSTEMI History of Present Illness Admission Date/PCP: DESTINEY HAMMONDS MD History of Present Illness: ANUSHA GUTIERREZ is a 79 year old very functional male with history of type 2 diabetes, hypertension, hyperlipidemia, Parkinson's disease, non-smoker who is consulted to our service for further evaluation secondary to non-STEMI. The patient had been in his usual state of health until yesterday when, during the day, he had a brief episode of chest pain. He later went to bed and woke up in the middle of the night with severe substernal chest pain that felt like a pressure. It lasted longer than 30 minutes however the patient does not remembe r exactly how long it lasted. At that time he felt flushed and tachycardic but without diaphoresis or shortness of breath. He also denied syncope and presyncope. EMS was called and he was provided at least 1 dose of sublingual nitroglycerin spray with resolution of symptoms. In the emergency room he was found to have ST depressions laterally however he was asymptomatic. He was provided nitroglycerin paste and was just begun on a heparin drip. He is currently asymptomatic and his ST depressions have resolved. Physical exam on 05/05/2020: GENERAL: Pleasant and conversational. Oriented x3 with normal mood. Not in acute distress. Well groomed and well developed. HEENT: Normocephalic, atraumatic. Pupils equal. Sclerae anicteric. Oropharynx moist. NECK: No JVD. No carotid bruits. LUNGS: Clear to auscultation bilaterally. Normal respiratory effort without the use of accessory muscles or intercostal retractions. CARDIOVASCULAR: Regular rate and rhythm, normal S1 and S2 without murmurs, rubs, or gallops. PMI not displaced. ABDOMEN: No masses or tenderness to palpation. No bruit. No splenomegaly or hepatomegaly. No abdominal aorta bruit noted. EXTREMITIES: 1+ pretibial pitting edema bilaterally, 2+ pitting edema at both feet, no cyanosis, no clubbing. +2 pulses femoral and pedal pulses bilaterally. SKIN: No lesions or rashes. MUSCULOSKELETAL: No chest tenderness to palpation. NEUROLOGIC: Nonfocal. No gross sensory or motor deficits bilateral upper or lower extremities. Past Medical History Cardiac Medical History: Reports: Hyperlipidema, Hypertension Denies: Coronary Artery Disease, Myocardial Infarction Pulmonary Medical History: Denies: Asthma, Bronchitis, Chronic Obstructive Pulmonary Disease (COPD), Pneumonia Neurological Medical History: Denies: Seizures Endocrine Medical History: Reports: Diabetes Mellitus Type 1, Diabetes Mellitus Type 2 - Oral hypoglycemics and insulin. Diabetic peripheral neuropathy. GI Medical History: Reports: Gastroesophageal Reflux Disease Denies: Hepatitis, Hiatal Hernia Musculoskeltal Medical History: Denies: Arthritis Psychiatric Medical History: Denies: Depression Hematology: Reports: Anemia Denies: Sickle Cell Disease Past Surgical History Past Surgical History: Reports: Appendectomy, Cholecystectomy Denies: Coronary Artery Bypass Graft, Gastric Bypass Surgery, Herniorrhaphy, Pacemaker, Tonsillectomy Social History Smoking Status: Former Smoker Frequency of Alcohol Use: None Hx Recreational Drug Use: No Hx Prescription Drug Abuse: No Family History Family History: Reviewed & Not Pertinent Parental Family History Reviewed: Yes Children Family History Reviewed: Yes Sibling(s) Family History Reviewed.: Yes Medication/Allergy Home Medications: Aspirin [Aspirin 81 mg Chewable Tablet] 81 mg PO QPM 02/21/15 Carbidopa/Levodopa [Carbidopa-Levo 10-100 mg Odt] tab PO QID 02/21/15 Cholecalciferol (Vitamin D3) [Vitamin D3 5000 unit Capsule] 5,000 unit PO QAM 02/21/15 Clopidogrel Bisulfate [Plavix 75 mg Tablet] 75 mg PO QPM 02/21/15 Ezetimibe [Zetia 10 mg Tablet] 10 mg PO QAM 02/21/15 Glimepiride [Amaryl] 2 mg PO BID 02/21/15 Insulin Detemir [Levemir Flextouch] 21 units SUBCUT QHS 02/21/15 Metformin HCl [Glucophage] 1,000 mg PO DAILY 02/21/15 Olmesartan/Amlodipin/Hcthiazid [Tribenzor 20-5-12.5 mg Tablet] 20 mg PO QAM 02/21/15 Ubidecarenone [Co Q-10] 100 mg PO QAM 02/21/15 Rosuvastatin Calcium [Crestor 5 mg Tablet] 5 mg PO DAILY 11/27/18 Timolol Maleate [Timoptic] 1 drop OU BID 11/27/18 Ketorolac Tromethamine [Toradol 10 mg Tablet] 10 mg PO Q6HP PRN #20 tablet 12/04/18 Ciprofloxacin HCl [Cipro 500 mg Tablet] 500 mg PO DAILY 7 Days #7 tablet 12/26/19 Tamsulosin HCl [Flomax 0.4 mg Cap.sr] 0.4 mg PO DAILY #7 cap.sr.24h 12/26/19 Bisac/NaCl/Nahco3/KCl/Peg 3350 [Peg-Prep Kit] 1 each PO ASDIR #1 kit 02/27/20 Cefdinir 300 mg PO BID #20 capsule 02/27/20 Allergies/Adverse Reactions: No Known Allergies Allergy (Verified 02/26/20 22:34) Physical Exam Vital Signs: Temp Pulse Resp BP Pulse Ox 98.4 F 108 H 20 157/64 H 98 05/05/20 03:00 05/05/20 03:00 05/05/20 06:01 05/05/20 06:01 05/05/20 06:01 Intake & Output 05/04/20 05/05/20 05/06/20 06:59 06:59 06:59 Weight 81.647 kg Results Laboratory Results: 05/05/20 03:02 05/05/20 03:02 05/05/20 05/05/20 03:02 03:02 WBC 12.0 H RBC 3.16 L Hgb 9.6 L Hct 28.8 L MCV 91 MCH 30.4 MCHC 33.4 RDW 14.1 H Plt Count 268 Seg Neutrophils % 85.5 H Sodium 134.1 L Potassium 4.7 Chloride 102 Carbon Dioxide 27 Anion Gap 5 BUN 38 H Creatinine 1.14 Est GFR ( Amer) > 60 Glucose 182 H Calcium 9.7 Total Bilirubin 0.5 AST 28 Alkaline Phosphatase 56 Total Protein 6.8 Albumin 4.0 05/05/20 05/05/20 05/05/20 03:02 03:02 05:36 Creatine Kinase 88 CK-MB (CK-2) 2.89 Troponin I 0.202 2.710 NT-Pro-B Natriuret Pep 05/05/20 05:36 Creatine Kinase CK-MB (CK-2) Troponin I NT-Pro-B Natriuret Pep 234 Impressions: Chest X-Ray 05/05/20 02:29 IMPRESSION: 1. No acute cardiopulmonary process. Head CT 05/05/20 04:39 IMPRESSION: 1. No acute intracranial findings visualized. 2. Diffuse cerebral atrophy. Assessment & Plan - Diagnosis (1) NSTEMI (non-ST elevated myocardial infarction) Is this a current diagnosis for this admission?: Yes Plan: 79-year-old with cardiac risk factors of hypertension, type 2 diabetes, hyperlipidemia, gender, age who presented to the emergency room with unstable angina, ST depressions laterally and a positive troponin currently at 2.7 consi stent with NSTEMI. He is currently chest pain-free and on a heparin drip. He is electrically and hemodynamically stable. Recommendations: -Continue with current medical management. -Lipitor 80 mg daily. -Awaiting transfer to [facility].
[2020-05-05] MEDS ORDERED: HEPARIN SOD (PORCINE) 1,000 UNIT/ML 10 ML VIAL IV PRN (10:08)
--- NOTE | 2020-05-05 10:24 | ER Document Report ---
Doctor's Note Notes: 05/05/20 10:25 79-year-old male patient suffered a non-STEMI earlier this morning. Dr. Donahue has been here to see the patient and help coordinate his care. He told me the patient was accepted at [facility] by Dr. Márquez with the intention of taking him to the cardiac [facility]. I filled out the entire form based on that information. The patient has been pain-free since I assumed his care at 6:30 AM this morning. 05/05/20 16:00 Just learned that [facility] has now assigned the patient bed, after I asked Dr. Donahue to look into the delay. 05/05/20 17:01 Transport is here to take the patient to [facility]. His vital signs are stable. He is pain-free. Patient is stable for transfer.
--- NOTE | 2020-05-05 15:18 | EKG REPORT ---
SEVERITY:- ABNORMAL ECG - SINUS TACHYCARDIA REPOL ABNRM SUGGESTS ISCHEMIA, LATERAL LEADS : Confirmed by: Mitra Maldonado MD 05-May-2020 15:18:10
--- NOTE | 2020-05-05 15:18 | EKG REPORT ---
SEVERITY:- ABNORMAL ECG - SINUS RHYTHM NONSPECIFIC REPOL ABNORMALITY, LATERAL LEADS : Confirmed by: Mitra Maldonado MD 05-May-2020 15:18:06
[2020-05-05 16:36] VITALS: BP 142/65
[2020-05-05] MEDS ORDERED: NORMAL SALINE 1000 ML 1,000 ML IV ONE (16:40)
[2020-05-05 17:01] LABS: APPEARANCE,URINE CLEAR; BILIRUBIN,URINE NEGATIVE (NEGATIVE); COLOR,URINE YELLOW; GLUCOSE, URINE 150 mg/dL (NEGATIVE); KETONES,URINE NEGATIVE (NEGATIVE); LEUKOCYTE ESTERASE,URINE NEGATIVE (NEGATIVE); NITRITE,URINE NEGATIVE (NEGATIVE); PROTEIN,URINE 100 mg/dL (NEGATIVE); URINE SPECIFIC GRAVITY 1.014; UROBILINOGEN,URINE NEGATIVE mg/dL (<2.0)
== END 2020-05-05 17:10 | disposition short-term general hospital (02) ==
LOC: ER 02:27
DX: I21.4 Non-ST elevation (NSTEMI) myocardial infarction (principal); R07.9 Chest pain, unspecified; E78.00 Pure hypercholesterolemia, unspecified; I10 Essential (primary) hypertension; E11.9 Type 2 diabetes mellitus without complications; G20 Parkinson's disease; F02.80 Dementia in other diseases classified elsewhere, unspecified severity, without behavioral disturbance, psychotic disturbance, mood disturbance, and anxiety; D64.9 Anemia, unspecified; Z79.84 Long term (current) use of oral hypoglycemic drugs; Z79.4 Long term (current) use of insulin
CPT/HCPCS: 93005; 99285; 96375; 96365; 96366; 36415; 82553; 82962; 82550; 85025; 85610; 85730; 80053; 81001; 84484; 83880; 71045; 70450; 93010; J1644 ×2; A9270; J7030

== ENCOUNTER 2020-06-22 23:14 | Emergency (ER) | payer MEDICARE ==
--- NOTE | 2020-06-23 00:22 | ER Document Report ---
ED General - General Chief Complaint: Constipation Stated Complaint: CONSTIPATION Time Seen by Provider: 06/23/20 00:11 Primary Care Provider: DESTINEY HAMMONDS MD [Primary Care Provider] - Follow up as needed TRAVEL OUTSIDE OF THE [place] IN LAST 30 DAYS: No - HPI Notes: Patient is an 79-year-old male with a history of Parkinson's disease who presents to the emergency department for evaluation of urinary retention and constipation. He has had this happen in the past. He said urinary retention relieved by Nice catheters. He is followed with urology in the past. He also has not had a bowel movement in the last several days. In the past he was found to be impacted. He had a fleets enema at home without any relief. He states he has some pressure in his bladder. No fevers or chills. No nausea or vomiting. He is eating and drinking normally. - Related Data Allergies/Adverse Reactions: No Known Allergies Allergy (Verified 05/05/20 09:17) Home Medications: Carbidopa levodopa, entacapone, inbrija, glimepiride, Zetia, amlodipine/olmesartan, Metformin, Levemir, rosuvastatin, metoprolol, allopurinol, Plavix, aspirin, atenolol, tamsulosin, docusate, co-Q10, D3, B12 Past Medical History - General Information source: Patient, Relative - Social History Smoking Status: Never Smoker Chew tobacco use (# tins/day): No Frequency of alcohol use: None Drug Abuse: None Family History: Reviewed & Not Pertinent Patient has homicidal ideation: No - Past Medical History Cardiac Medical History: Reports: Hx Heart Attack - Medically managed at [place] [id number], Hx Hypercholesterolemia, Hx Hypertension Denies: Hx Coronary Artery Disease Pulmonary Medical History: Denies: Hx Asthma, Hx Bronchitis, Hx COPD, Hx Pneumonia Neurological Medical History: Reports: Hx Parkinson's Disease. Denies: Hx Cerebrovascular Accident, Hx Seizures Endocrine Medical History: Reports: Hx Diabetes Mellitus Type 1, Hx Diabetes Mellitus Type 2 - Oral hypoglycemics and insulin. Diabetic peripheral neuropathy. GI Medical History: Reports: Hx Gastroesophageal Reflux Disease. Denies: Hx Hepatitis, Hx Hiatal Hernia, Hx Ulcer Musculoskeletal Medical History: Denies Hx Arthritis Psychiatric Medical History: Denies: Hx Depression Infectious Medical History: Denies: Hx Hepatitis Past Surgical History: Reports: Hx Appendectomy, Hx Cholecystectomy. Denies: Hx Bowel Surgery, Hx Coronary Artery Bypass Graft, Hx Gastric Bypass Surgery, Hx Herniorrhaphy, Hx Open Heart Surgery, Hx Pacemaker, Hx Tonsillectomy - Immunizations Immunizations up to date: Yes Hx Diphtheria, Pertussis, Tetanus Vaccination: No Hx Pneumococcal Vaccination: 09/20/12 Review of Systems - Review of Systems Constitutional: No symptoms reported EENT: No symptoms reported Cardiovascular: No symptoms reported Respiratory: No symptoms reported Gastrointestinal: See HPI Genitourinary: No symptoms reported Musculoskeletal: No symptoms reported Skin: No symptoms reported Neurological/Psychological: No symptoms reported Physical Exam - Vital signs Vitals: Temp Pulse Resp BP Pulse Ox 97.8 F 80 20 146/56 H 99 06/22/20 23:14 06/22/20 23:14 06/22/20 23:14 06/22/20 23:14 06/22/20 23:14 - Notes Notes: Is a very pleasant 79-year-old male who appears stated age, no acute distress. Head is normocephalic and atraumatic, pupils are equal and round, reactive to light. Oral mucosa is moist. Heart is regular rate and rhythm, lungs are clear to auscultation bilaterally. Abdomen shows a distended bladder on exam with some suprapubic tenderness. No CVA tenderness. Normoactive bowel sounds. Extremities show 2+ pitting ankle edema, no posterior calf tenderness. Skin is warm and dry. Course - Re-evaluation Re-evalutation: 06/23/20 00:25 Patient presents to the emergency department for evaluation. He has urinary retention which is not a new problem for him, on exam it is clear that his bladder is distended. Nice catheter is ordered. I will order a KUB to see where his constipation lies. He is currently stable, we will continue to monitor. 06/23/20 05:01 I evaluated the patient multiple times. After Nice catheter placement he had approximately 700 cc of urine drained. KUB showed significant constipation. He was given a mineral oil enema. Eventually he did have a large bowel movement. The patient feels comfortable going home. I will have him follow-up with his primary care provider and urology. He is to return to the ED with worsening or new concerning symptoms of any sort. - Vital Signs Vital signs: Temp Pulse Resp BP Pulse Ox 97.8 F 80 20 139/57 H 99 06/22/20 23:14 06/22/20 23:14 06/22/20 23:14 06/23/20 02:01 06/22/20 23:14 - Diagnostic Test Radiology reviewed: Image reviewed, Reports reviewed Radiology results interpreted by me: 06/23/20 05:02 KUB X-Ray 06/23/20 00:13 IMPRESSION: Large volume of stool throughout the colon. This has worsened when compared to the previous exam. No definitive bowel obstruction. Discharge - Discharge Clinical Impression: Acute urinary retention, Constipation Condition: Stable Disposition: HOME, SELF-CARE Instructions: Constipation ([facility]), Nice Catheter Care ([facility]), Urinary Retention ([facility]) Additional Instructions: Please follow-up with primary care as well as urology this week. Return to the emergency department with worsening or new concerning symptoms of any sort. Referrals: DESTINEY HAMMONDS MD [Primary Care Provider] - Follow up as needed
--- NOTE | 2020-06-23 00:51 | RADIOLOGY REPORT (SQ) ---
EXAM DESCRIPTION: KUB/ABDOMEN (SINGLE VIEW) CLINICAL HISTORY: 79 years Male, constipation COMPARISON: Single view of the abdomen 12/26/2019 FINDINGS: Large volume of stool is identified throughout the abdomen. The rectal vault is distended with stool. There is a small amount of air also seen in the small bowel. When compared the previous exam the volume of stool has worsened. Phleboliths are present in the pelvis. There is vascular clips on the right side of the abdomen. IMPRESSION: Large volume of stool throughout the colon. This has worsened when compared to the previous exam. No definitive bowel obstruction.
[2020-06-23] MEDS ORDERED: MINERAL OIL 30 ML UDCUP PR ONE (01:24)
[2020-06-23 06:21] VITALS: BP 131/52
== END 2020-06-23 06:21 | disposition home or self-care (01) ==
LOC: ER 23:14
DX: K59.00 Constipation, unspecified (principal); R33.9 Retention of urine, unspecified; I25.2 Old myocardial infarction; E11.9 Type 2 diabetes mellitus without complications; Z79.4 Long term (current) use of insulin
CPT/HCPCS: 99283; 51702; 74018; A9270; J3490